=== PATIENT | male | born 2000 | race Caucasian/White ===

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

== ENCOUNTER → 2021-01-25 | Outpatient (CLI) | payer OTHER ==
[~2021-01-25] MED LIST: AUGMENTIN 875-1 EACH PO; FLAGYL500 MG PO; NORCO 5-325 TA1 EACH PO; ZOFRAN4 MG PO
== END ==
LOC: KOH-I 11:45
DX: M54.9 Dorsalgia, unspecified (principal); M53.3 Sacrococcygeal disorders, not elsewhere classified; M43.06 Spondylolysis, lumbar region; M48.07 Spinal stenosis, lumbosacral region
CPT/HCPCS: 72110; 72202

== ENCOUNTER → 2021-12-07 | Outpatient (CLI) | payer OTHER | LOC: LAB 17:44 | PROVIDERS: Specialist | DX: R79.89 Other specified abnormal findings of blood chemistry (principal) | CPT/HCPCS: 36415; 84270; 84402; 84403 ==